=== PATIENT | female | born 1955 | race Two or more races ===

== ENCOUNTER 2023-05-16 07:39 | Outpatient (CLI) | payer OTHER ==
[~2023-05-16 07:39] MED LIST: LOSARTAN-HCTZ1 EACH PO; METFORMIN HCL500 MG; SYNTHROID112 MCG PO; SYNTHROID75 MCG; VYTORIN 10-40 M1 TAB PO; ZOCOR5 MG
== END 2023-05-16 07:42 | disposition home or self-care (01) ==
LOC: NUCLEAR 07:39
PROVIDERS: ATTEND Internal Medicine
DX: I25.10 Atherosclerotic heart disease of native coronary artery without angina pectoris (principal)

== ENCOUNTER 2023-11-21 07:21 | Outpatient (CLI) | payer OTHER | END 2023-11-21 07:28 | disposition home or self-care (01) | LOC: RAD 07:21 | PROVIDERS: ATTEND Orthopaedic Surgery Orthopaedic Surgery of the Spine | DX: M43.16 Spondylolisthesis, lumbar region (principal) ==

== ENCOUNTER 2024-01-10 09:51 | Outpatient (CLI) | payer OTHER | END 2024-01-10 09:57 | disposition home or self-care (01) | LOC: RAD 09:51 | PROVIDERS: ATTEND Orthopaedic Surgery Orthopaedic Surgery of the Spine | DX: M43.16 Spondylolisthesis, lumbar region (principal) ==